=== PATIENT | female | born 1990 | race Hispanic/Latino ===

== ENCOUNTER 2018-09-09 12:46 | Emergency (ER) | payer OTHER ==
[2018-09-09 12:58] VITALS: BP 114/77; PULSE 81; RESP 18; TEMP 97.6; O2SAT 100
[2018-09-09] MEDS ORDERED: Sodium Chloride 0.9% 1,000 ML IV STA (13:06)
--- NOTE | 2018-09-09 13:14 | ED PDOC ---
HPI: Abdomen Time Seen by Provider: 09/09/18 13:12 Chief Complaint (Nursing): Abdominal Pain Chief Complaint (Provider): ABDOMINAL PAIN History Per: Patient (27 Y/O FEMALE SENT BY [facility] FOR EVALUATION OF POSSIBLE ECTOPIC . PATIENT HAS H/O CROHNS WITH COLON RESECTION 3 YEARS AGO. HAD STOPPED MEDICATION ONE YR AGO INVEGA B/C SHE DEVELOPED ANTIBODIES. NOTES SHE WAS VOMITING X 2 DAYS SUNDAY/SUNDAY AND HAS SINCE HAD CRAMPY LOWER ABD PAIN R>L. SENT TO ED [facility] FOR [facility]ALUATION AFTER NOTICE OF POSITIVE URINE TEST.) Past Medical History Reviewed: Historical Data, Nursing Documentation, Vital Signs Vital Signs: Last Vital Signs Temp 97.6 F 09/09/18 12:57 Pulse 81 09/09/18 12:57 Resp 18 09/09/18 12:57 BP 114/77 09/09/18 12:57 Pulse Ox 100 09/09/18 12:57 - Medical History PMH: Crohn's Disease - Family History Family History: States: No Known Family Hx - Home Medications Home Medications: Ambulatory Orders Medication Instructions Recorded Pnv No.95/Ferrous Fum/Folic AC 1 each PO DAILY #30 tablet 09/09/18 [ Vitamins Tablet] - Allergies Allergies/Adverse Reactions: Allergies Allergy/AdvReac Type Severity Reaction Status Date / Time No Known Allergies Allergy Verified 09/09/18 12:55 Review of Systems ROS Statement: Except As Marked, All Systems Reviewed And Found Negative Gastrointestinal: Positive for: Vomiting, Abdominal Pain Physical Exam - Reviewed Nursing Documentation Reviewed: Yes Vital Signs Reviewed: Yes - Physical Exam Appears: Positive for: Well, Non-toxic, No Acute Distress Head Exam: Positive for: ATRAUMATIC, NORMAL INSPECTION, NORMOCEPHALIC Skin: Positive for: Normal Color, Warm, DRY Eye Exam: Positive for: EOMI, Normal appearance, PERRL ENT: Positive for: Normal ENT Inspection Neck: Positive for: Normal, Painless ROM Cardiovascular/Chest: Positive for: Regular Rate, Rhythm Respiratory: Positive for: CNT, Normal Breath Sounds Gastrointestinal/Abdominal: Positive for: Soft. Negative for: Normal Exam (S URGICAL SCAR NOTED VERTICAL AND RLQ. 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 us abdomen/pelvis IMPRESSION: Unremarkable abdominal sonogram. Disposition - Clinical Impression Clinical Impression: Threatened miscarriage - Patient ED Disposition Is Patient to be Admitted: No - Disposition Referrals: [facility] [Outside] Disposition: Routine/Home Disposition Time: 17:45 Condition: FAIR Prescriptions: Pnv No.95/Ferrous Fum/Folic AC [ Vitamins Tablet] 1 each PO DAILY #30 tablet Instructions: Threatened Miscarriage (DC) Forms: [facility] ED School/Work Excuse
[2018-09-09 14:23] LABS: BASO % 0.5 % (0.0-2.0); EOS # 0.1 K/uL (0.0-0.7); EOS % 1.7 % (0.0-4.0); LYMPH # 1.2 K/uL (1.0-4.3); LYMPH % 19.6 % (20.0-40.0); MEAN CELL VOLUME 92.6 fl (81.0-99.0); MEAN CORPUSCULAR HEMOGLOBIN 30.8 pg (27.0-31.0); MEAN CORPUSCULAR HGB CONC 33.2 g/dL (33.0-37.0); MEAN PLATELET VOLUME 8.2 fl (7.2-11.7); MONO # 0.5 K/uL (0.0-0.8); MONO % 8.8 % (0.0-10.0); NEUT # 4.1 K/uL (1.8-7.0); NEUT % 69.4 % (50.0-75.0); NRBC % 0.2 % (0.0-0.0); RBC 3.89 Mil/uL (3.80-5.20); RED CELL DISTRIBUTION WIDTH 12.7 % (11.5-14.5); WHITE BLOOD COUNT 5.9 K/uL (4.8-10.8)
[2018-09-09 14:28] LABS: SQUAMOUS EPITHIAL 3 /hpf (0-5); URINE BILIRUBIN NEGATIVE (NEGATIVE); URINE BLOOD NEGATIVE (NEGATIVE); URINE CLARITY CLEAR (Clear); URINE COLOR YELLOW (YELLOW); URINE GLUCOSE (UA) NEG (NEGATIVE); URINE LEUKOCYTE ESTERASE NEG Leu/uL (Negative); URINE PROTEIN NEGATIVE (NEGATIVE); URINE UROBILINOGEN 0.2-1.0 mg/dL (0.2-1.0)
[2018-09-09 16:39] LABS: ALB/GLOB RATIO 1.1 (1.0-2.1); ALT/SGPT 16 U/L (9-52); AST/SGOT 24 U/L (14-36); BLOOD UREA NITROGEN 9 mg/dl (7-17); CALCIUM 9.3 mg/dL (8.4-10.2); GFR NON-AFRICAN AMERICAN > 60; LIPASE 125 U/L (23-300)
--- NOTE | 2018-09-09 16:57 | US ---
Date of service: 09/09/2018 HISTORY: RLQ PAIN H/O CROHNS COMPARISON: None. TECHNIQUE: Sonographic evaluation of the abdomen. FINDINGS: LIVER: Measures 16.9 cm. Patent portal vein. Portal venous flow: Hepatopetal. Unremarkable echogenicity of the liver parenchyma. No mass. No intrahepatic bile duct dilatation. GALLBLADDER: Unremarkable. No gallstones. COMMON BILE DUCT: Measures 1.7 mm. No stones. No dilatation. PANCREAS: Unremarkable as visualized. No mass. No ductal dilatation. RIGHT KIDNEY: Measures 5.6 x 10.8cm. Normal echogenicity. No calculus, mass, or hydronephrosis. LEFT KIDNEY: Measures 4.7 x 10.5cm. Normal echogenicity. No calculus, mass, or hydronephrosis. SPLEEN: Normal in size and contour. No mass. AORTA: No aneurysmal dilatation. IVC: Unremarkable. OTHER FINDINGS: None. IMPRESSION: Unremarkable abdominal sonogram.
--- NOTE | 2018-09-09 17:00 | US ---
Date of service: 09/09/2018 PROCEDURE: First trimester ultrasound HISTORY: R/O ECTOPIC COMPARISON: None TECHNIQUE: Standard protocol for this study/examination. FINDINGS: LMP: Unknown Prior examinations from the current : None TECHNIQUE: Real-time 2D imaging, duplex and color Doppler. FINDINGS: Cardiac activity: Present Rate: 146 BPM Measurements: Nicasio rump length: 6.59 cm Gestational age based on CRL 12 weeks 6 days Gestational age 12 weeks 1 day based on gestational sac measurement 5.99 cm Gestational age derived from LMP: Cannot be ascertained based in the absence of a reliable/ known LMP YANELIS based on LMP: Cannot be ascertained based in the absence of a reliable/ known LMP YANELIS based on biometry: 03/15/2019 including the following: BPD 2.45 cm. Gestational age 14 weeks 1 day. Head circumference 8.76 cm corresponds to gestational age 13 weeks 6 days. Abdominal circumference 7.24 cm, corresponding gestational age 13 weeks 5 days. Femur length 0.95 cm corresponding gestational age 12 weeks 6 days. Gestational concordance Cannot be ascertained based in the absence of a reliable/ known LMP Yolk sac identified Cervix: No Cervical abnormalities: Negative examination for cervical dilatation or effacement. Closed cervix measuring 3.86 cm Subchorionic hemorrhage: None UTERUS: 9.7 x 9.6 x 8.5 cm. ADNEXA: Right: 1.2 x 2.1 x 3.4 cm. Normal Doppler arterial waveform documented. Left: 2.1 x 2.3 x 3.5 cm. Normal Doppler arterial waveform documented Fluid in the cul-de-sac: None IMPRESSION: 13 weeks 2 days live intrauterine gestation.
== END 2018-09-09 18:04 | disposition home or self-care (01) ==
LOC: H.ER 12:46
DX: O20.0 Threatened abortion (principal); K50.90 Crohn's disease, unspecified, without complications
CPT/HCPCS: 76700; 76817; 80053; 81003; 81025; 83690; 84702; 85025; 86850; 86900; 87086; 99285; J7030